=== PATIENT | male | born 1995 | race Caucasian/White ===

== ENCOUNTER 2016-12-24 01:40 | Emergency (ER) | payer OTHER ==
[2016-12-24] MEDS ORDERED: KETOROLAC 30 MG/1 ML SDV IM ONE (01:57)
[2016-12-24 02:01] LABS: COLOR YELLOW; LEUKOCYTE ESTERASE,URINE NEGATIVE (NEGATIVE); NITRITE,URINE NEGATIVE (NEGATIVE)
--- NOTE | 2016-12-24 02:03 | EDPHY ---
H & P Stated Complaint: SUDDEN ONSET LEFT UPPER RIB-FLANK AND SOB Time Seen by Provider: 12/24/16 01:42 HPI/ROS: HPI The patient presents with chest pain which began at about 9:00 p.m. tonight after playing softball. He denies any injury. He says he was moving around a lot and generally felt okay, the any of the slow onset of this pain which is sharp, deep, begins in his left upper back and radiates forward toward his abdominals. He has not had this pain before. He is most comfortable if he leans to his left side, but if he tries to sit upright, the pain returns. It does not affect his breathing. He does not have any leg swelling, palpitations , rash. He tried taking ibuprofen and a muscle relaxer without any improvement in his symptoms. REVIEW OF SYSTEMS Constitutional: No fever, no chills. Eyes: No discharge. ENT: No sore throat. Cardiovascular: Positive for chest pain, no palpitations. Respiratory: No cough, no shortness of breath. Gastrointestinal: No abdominal pain, no vomiting. Genitourinary: No hematuria. Musculoskeletal: No back pain. Skin: No rashes. Neurological: No headache. PMHx: Healthy Soc Hx: College student PHYSICAL General Appearance: Alert, no distress Eyes: Pupils equal and round no pallor or injection ENT, Mouth: Mucous membranes moist Respiratory: There are no retractions, lungs are clear to auscultation Back: No posterior midline tenderness throughout his spine Cardiovascular: Regular rate and rhythm Gastrointestinal: Abdomen is soft and non-tender, no masses, bowel sounds normal Neurological: A&O, moves all extremities Skin: Warm and dry, no rashes Musculoskeletal: Neck is supple non tender, he does not have any chest wall tenderness Extremities: symmetrical, full range of motion Psychiatric: Patient is oriented X 3, there is no agitation Source: Patient Exam Limitations: No limitations - Personal History Current Tetanus/Diphtheria Vaccine: Yes Current Tetanus Diphtheria and Acellular Pertussis (TDAP): Yes - Medical/Surgical History Hx Asthma: No Hx Chronic Respiratory Disease: No Hx Diabetes: No Hx Cardiac Disease: No Hx Renal Disease: No Hx Cirrhosis: No Hx Alcoholism: No Hx HIV/AIDS: No Hx Splenectomy or Spleen Trauma: No Other PMH: POLYPS IN COLON. hernia, endoscopy, colonoscopy, wisdom teeth removed - Social History Smoking Status: Never smoked Constitutional: Initial Vital Signs Temperature (C) 36.4 C 12/24/16 01:40 Heart Rate 80 12/24/16 01:40 Respiratory Rate 16 12/24/16 01:40 Blood Pressure 146/84 H 12/24/16 01:40 O2 Sat (%) 96 12/24/16 01:40 O2 Delivery Mode Room Air Allergies/Adverse Reactions: No Known Allergies Allergy (Unverified 12/24/16 01:49) Home Medications: Medication Instructions Recorded NK [No Known Home Meds] 12/24/16 Medical Decision Making - Diagnostics Imaging Results: Chest x-ray two views shows no pneumothorax, no infiltrate, no rib fracture, interpreted by me, radiology interpretation is pending. Differential Diagnosis: This is a 21-year-old healthy male who presents with left-sided chest wall pain which began earlier this evening after playing a game a softball. He has not had any direct trauma. On exam, he does not have any tenderness in his relatively normal exam. Differential diagnosis includes pneumothorax, rib fracture, muscle strain, less likely pulmonary embolism as PERC negative. 3:00 a.m.- The patient was given IM Toradol and morphine with some improvement in his symptoms. Chest x-ray and UA were both unremarkable, making suspicion for muscle strain/spasm high. I performed a trigger-point injection in the mid thoracic paraspinals on the left using bupivacaine 0.5%, total of 4 mL was at point of maximum tenderness. There were no immediate complications. I also applied a Lidoderm patch. The patient felt comfortable enough to go home. I have encouraged heat packs, anti-inflammatories. I will give a pill pack of Valium prior to discharge. I have discussed return precautions. - Data Points Laboratory Results: 12/24/16 01:49 Urine Color YELLOW Urine Appearance CLEAR Urine pH 6.0 (5.0-7.5) Ur Specific [place] 1.027 (1.002-1.030) Urine Protein NEGATIVE (NEGATIVE) Urine Ketones TRACE H (NEGATIVE) Urine Blood NEGATIVE (NEGATIVE) Urine Nitrate NEGATIVE (NEGATIVE) Urine Bilirubin NEGATIVE (NEGATIVE) Urine Urobilinogen NEGATIVE EU EU (0.2-1.0) Ur Leukocyte Esterase NEGATIVE (NEGATIVE) Urine Glucose NEGATIVE (NEGATIVE) Medications Given: Discontinued Medications Ketorolac Tromethamine (Toradol) 30 mg IM EDNOW ONE Stop: 12/24/16 01:58 Last Admin: 12/24/16 02:05 Dose: 30 mg Lidocaine (Lidoderm 5%) 1 ea TD DAILY ONE Stop: 12/24/16 02:31 Last Admin: 12/24/16 02:50 Dose: 1 ea Morphine Sulfate (Morphine) 6 mg IM EDNOW ONE Stop: 12/24/16 01:58 Last Admin: 12/24/16 02:06 Dose: 6 mg Departure - Departure Disposition: Home, Routine, Self-Care Clinical Impression: Chest pain Qualifiers: Chest pain type: unspecified Qualified Code(s): R07.9 - Chest pain, unspecified Condition: Good Instructions: Diazepam (By mouth), Chest Pain (ED), Muscle Spasm (ED) Additional Instructions: You should take ibuprofen 400 mg every 6 hours with acetaminophen 1 gram every 8 hours as needed for pain. Please use a heat pack on your back. You should take the Valium if your symptoms are strong despite these treatments. Please get checked out tomorrow if you are having any worsening pain. Referrals: [facility] [Outside] - As per Instructions
[2016-12-24] MEDS ORDERED: LIDOCAINE 5% 1 EA PATCH TD ONE (02:30)
[2016-12-24] MEDS ORDERED: DIAZEPAM 5 MG PREPACK#4 BTL TAKEHOME ONE (03:13)
[2016-12-24 03:25] VITALS: BP 110/57; PULSE 67; RESP 14; TEMP 98.2; O2SAT 93
[2016-12-24] MEDS ORDERED: PATCH REMOVAL 1 EA PATCH TD SCH (21:00)
== END 2016-12-24 03:24 | disposition home or self-care (01) ==
DX: R07.9 Chest pain, unspecified (principal)
CPT/HCPCS: J1885